=== PATIENT | female | born 1975 | race Caucasian/White ===

== ENCOUNTER 2018-02-13 22:24 | Emergency (ER) | payer OTHER ==
[~2018-02-13] VITALS: Ht 160 cm; Wt 90.7 kg
[2018-02-13] MEDS ORDERED: LEXAPRO20 MG (22:30)
[2018-02-13] MEDS ORDERED: SKELAXIN 800 M800 M1 (22:30)
[2018-02-13] MEDS ORDERED: PRILOSEC 20 MG20 MG (22:31)
[2018-02-13] MEDS ORDERED: TRAMADOL 50 MG50 MG (22:31)
[2018-02-13] MEDS ORDERED: CLONAZEPAM 0.50.5 M1 (22:32)
[2018-02-13] MEDS ORDERED: JARDIANCE25 MG (22:33)
[2018-02-13] MEDS ORDERED: OXYCONTIN10 M1 (22:33)
[2018-02-13] MEDS ORDERED: TOPROL XL25 MG (22:34)
[2018-02-13] MEDS ORDERED: DIOVAN320 MG (22:35)
[2018-02-13] MEDS ORDERED: DURAGESIC1 EAC1 (22:36)
[2018-02-13] MEDS ORDERED: ZOFRAN ODT4 MG (22:37)
[2018-02-13 22:58] LABS: HEMATOCRIT 41.6 % (37.0-47.0); HEMOGLOBIN 13.9 gm/dL (12.0-15.0); MCH 27.7 pg (26.0-34.0); MCHC 33.4 g/dL (28.0-37.0); MCV 82.9 fL (80.0-100.0); MPV 10.5 fl. (7.2-11.1); NUCLEATED RBCS 0 /100WBC; PLATELET COUNT* 210 thou/uL (150-400); RBC 5.02 mil/uL (4.20-5.00); WBC 13.3 thou/uL (4.0-11.0)
[2018-02-13 23:07] LABS: CALCIUM 8.4 mg/dL (8.5-10.1); CREATININE 0.7 mg/dL (0.6-1.3); POTASSIUM 3.9 mmol/L (3.5-5.1)
[2018-02-13 23:12] LABS: ALBUMIN 3.5 g/dL (3.4-5.0); TOTAL BILIRUBIN 0.3 mg/dL (<0.1-1.0); TOTAL PROTEIN 7.1 g/dL (6.4-8.2)
[2018-02-13 23:46] LABS: URINE BILIRUBIN NEGATIVE (Negative); URINE BLOOD NEGATIVE (Negative); URINE CLARITY CLEAR; URINE COLOR YELLOW; URINE GLUCOSE-RANDOM 1+ (Negative); URINE KETONES NEGATIVE (Negative); URINE LEUKOCYTES-REFLEX NEGATIVE (Negative); URINE NITRITE-REFLEX NEGATIVE (Negative); URINE PROTEIN NEGATIVE (Negative); URINE SPECIFIC GRAVITY <= 1.005 (1.005-1.030); URINE UROBILINOGEN 0.2 E.U./dl (0.2-1.0)
[2018-02-14 00:21] LABS: ABSOLUTE EOSINOPHILS 1.7 thou/uL (0.0-0.7); ABSOLUTE LYMPHOCYTES 3.1 thou/uL (0.8-5.3); ABSOLUTE MONOCYTES 0.3 thou/uL (0.0-1.2); ABSOLUTE NEUTROPHILS 8.2 thou/uL (1.6-8.1); PLATELET ESTIMATE ADEQUATE
[2018-02-14 04:53] VITALS: BP 100/60
== END 2018-02-14 04:56 | disposition home or self-care (01) ==
LOC: M.ERS 22:24
PROVIDERS: Nurse Practitioner Psychiatric/Mental Health
DX: N83.201 Unspecified ovarian cyst, right side (principal); I10 Essential (primary) hypertension; G89.29 Other chronic pain; M54.9 Dorsalgia, unspecified; M79.7 Fibromyalgia; Z90.49 Acquired absence of other specified parts of digestive tract

== ENCOUNTER 2021-02-21 10:07 | Emergency (ER) | payer OTHER ==
[~2021-02-21] VITALS: Ht 162.6 cm; Wt 95.3 kg
[~2021-02-21 10:07] MED LIST: CLONAZEPAM 0.50.5 M1; DIOVAN320 MG; DURAGESIC1 EAC1; JARDIANCE25 MG; LEXAPRO20 MG; OXYCONTIN10 M1; PRILOSEC 20 MG20 MG; SKELAXIN 800 M800 M1; TOPROL XL25 MG; TRAMADOL 50 MG50 MG; ZOFRAN ODT4 MG
[2021-02-21] MEDS ORDERED: FLEXERIL PO (10:33)
[2021-02-21] MEDS ORDERED: MELOXICAM7.5 MG PO (10:33)
[2021-02-21] MEDS ORDERED: BELSOMRA20 MG PO (10:34)
[2021-02-21 11:16] VITALS: BP 107/75
== END 2021-02-21 11:16 | disposition home or self-care (01) ==
LOC: M.ERS 10:07
DX: R04.0 Epistaxis (principal); I10 Essential (primary) hypertension; M79.7 Fibromyalgia; G89.29 Other chronic pain; Z90.49 Acquired absence of other specified parts of digestive tract; Z91.040 Latex allergy status